=== PATIENT | male | born 1965 | race Caucasian/White ===

== ENCOUNTER 2021-07-04 12:00 | Inpatient (IN) | payer MEDICARE ==
[~2021-07-04] VITALS: Ht 172.7 cm; Wt 165.0 kg
[2021-07-04 12:27] LABS: BASO % 0.3 % (0.0-2.0); EOS # 0.2 K/mm3 (0.0-0.7); EOS % 1.1 % (0.0-4.0); GRAN # 10.4 K/mm3 (1.4-6.5); GRAN % 77.3 % (42.2-75.2); HEMATOCRIT 45.8 % (42.0-52.0); HEMOGLOBIN 14.7 g/dl (13.5-18.0); LYMPH # 1.8 K/mm3 (1.2-3.4); LYMPH % 13.5 % (20.0-51.0); MEAN CELL VOLUME 84 fl (80.0-100.0); MEAN CORPUSCULAR HEMOGLOBIN 27 pg (27-31); MEAN CORPUSCULAR HGB CONC 32 g/dl (33.0-37.0); MEAN PLATELET VOLUME 8.9 fl (7.4-10.4); MONO % 7.3 % (1.7-9.3); PLATELET COUNT 260 K/mm3 (130-400); RED BLOOD COUNT 5.48 M/mm3 (4.20-5.60); REDCELL DISTRIBUTION WIDTH-CV 14.6 % (11.5-14.5)
[2021-07-04 12:39] LABS: ACETONE,SERUM NEGATIVE
[2021-07-04 12:43] LABS: ALANINE AMINOTRANSFERASE 14 U/L (0-55); ALBUMIN 3.1 gm/dL (3.5-5.0); ALKALINE PHOSPHATASE 86 U/L (40-150); ANION GAP 12 mmol/L (7-16); AST,SGOT 12 U/L (5-34); BILIRUBIN,TOTAL 0.4 mg/dL (0.2-1.2); BLOOD UREA NITROGEN 32 mg/dL (8-26); CALCIUM 8.8 mg/dL (8.4-10.2); CARBON DIOXIDE 23 mmol/L (22-29); CHLORIDE 102 mmol/L (98-107); CREATININE, serum 1.43 mg/dL (0.72-1.25); GLUCOSE 224 mg/dL (70-99); POTASSIUM 4.3 mmol/L (3.5-4.5); SODIUM 137 mmol/L (136-145); TOTAL PROTEIN 7.1 gm/dL (6.2-8.1)
[2021-07-04 13:08] LABS: COLLECTION METHOD CLEAN CATCH
[2021-07-04 13:21] LABS: MUCOUS Present (NOT PRESENT); PH 5 (5-8); SQUAMOUS EPITHELIAL 0-2 /hpf (0-10); URINE APPEARANCE Hazy (CLEAR/HAZY); URINE BACTERIA Occasional /hpf (NONE SEEN); URINE BILIRUBIN Negative (NEGATIVE); URINE BLOOD Negative (NEGATIVE); URINE COLOR Yellow (YELLOW); URINE GLUCOSE Negative (NEGATIVE); URINE KETONE Negative (NEGATIVE); URINE LEUKOCYTE ESTERASE 1+ (NEGATIVE); URINE NITRATE Negative (NEGATIVE); URINE PROTEIN(semi-quant) Negative (NEGATIVE); URINE RBC 0-2 /hpf (0-2)
[2021-07-04] MEDS ORDERED: PRINIVIL40 MG PO (15:48)
[2021-07-04] MEDS ORDERED: PRINIVIL20 MG PO (15:48)
[2021-07-04] MEDS ORDERED: MOTRIN 800800 MG/TAB PO (15:49)
[2021-07-04] MEDS ORDERED: ASPIRIN 81M81 MG/TA2 PO (15:49)
[2021-07-04] MEDS ORDERED: TYLENOL 500MG500 MG PO (15:50)
[2021-07-04] MEDS ORDERED: Tumeric (15:52)
[2021-07-04] MEDS ORDERED: OMEGA-3 1000 MG1 CAP PO (15:54)
[2021-07-04 16:09] LABS: TSH w REFLEX 1.093 uIU/mL (0.350-4.940)
[2021-07-04 16:17] VITALS: BP 116/75; PULSE 92; TEMP 97.9
[2021-07-04 16:20] LABS: TROPONIN-I < 0.010 ng/mL (0.00-0.033)
--- NOTE | 2021-07-04 17:29 | NUR ---
Vancomycin Initial Dosing Pharmacy Note Ordering provider: Noe Edgar MD Indication/duration: CELLULITIS Relevant comorbidities: DM LABS: WBC 13.4, SCR 1.4, CRCL.~80 Recommendation: VANCOMYCIN ~10MG/KG Loading dose: 2 grams Maintenance dose: 1.75 grams every 12 hours Trough goal: 10-15 ug/mL. TROUGH 07/06 @ 1400
--- NOTE | 2021-07-04 18:29 | NUR ---
PT LAYING ON LEFT SIE IN BED. PT STATES THAT HE NEEDS TO USE THE BATHROOM BUT DOESNT FEEL LIKE GETTING UP RIGHT NOW. PT WAS GIVEN A URINAL. PT STATES NO OTHER NEEDS OR PAIN AT THIS TIME. CALL LIGHT IS WITHIN REACH.
[2021-07-04 20:18] VITALS: BP 114/77; PULSE 104; TEMP 98.5
--- NOTE | 2021-07-04 21:42 | NUR ---
No home settings provided. No CPAP or Bipap settings in order. Confirmed with Rissa Rich can use O2 Nasal Cannula and will monitor O2 SpO2 and if not tolerated will contact provider for further orders.
[2021-07-04 22:59] LABS: PARTIAL THROMBOPLASTIN TIME 54.1 SECONDS (26.0-37.0)
[2021-07-05 00:37] VITALS: BP 132/56; PULSE 89; TEMP 98.5
[2021-07-05 04:39] VITALS: BP 117/52; PULSE 75; TEMP 98.7
--- NOTE | 2021-07-05 06:15 | NUR ---
ASSESSMENT COMPLETE FOR THIS SHIFT. PT SITTING ON THE SIDE OF HIS BED WATCHING TV. PT DENIED PAIN, PALPITATIONS, SOB, N,V,D, OR DIZZINESS. PT SHOWED SOME V-TACH AND AFIB ON TELLE. HOSPITALIST CALLED. EKG, HEPRIN BOLUS AND DRIP ORDERED. PT CONTINUED, THROUGHOUT THE SHIFT, TAKING OFF HIS TELLE. PT REMINDED OVER AND OVER OF THE IMPORTANCE OF KEEPING ON HIS TELLE LEADS. AT 0600HRS HOSPITALIST CALLED ABOUT PT'S NON-COMPLIANCE ON TELLE. HOSPITALIST SAID TO JUST LEAVE IT OFF FOR NOW AND HAVING DAYSHIFT WORK WITH PT, TO TRY TO GET PT TO BE MORE COMPLIANT. OTHER THEN 3 SANDWICH BOXES, A PUDDING AND A SPRITE ZERO, PT EXPRESSED NO OTHER NEEDS AT THIS TIME. CALL LIGHT WITHIN REACH.
[2021-07-05 06:23] LABS: BASO % 0.3 % (0.0-2.0); EOS # 0.2 K/mm3 (0.0-0.7); EOS % 1.5 % (0.0-4.0); GRAN # 9.4 K/mm3 (1.4-6.5); GRAN % 68.7 % (42.2-75.2); HEMATOCRIT 43.9 % (42.0-52.0); LYMPH # 2.6 K/mm3 (1.2-3.4); LYMPH % 18.9 % (20.0-51.0); MEAN CELL VOLUME 85 fl (80.0-100.0); MEAN CORPUSCULAR HEMOGLOBIN 27 pg (27-31); MEAN CORPUSCULAR HGB CONC 32 g/dl (33.0-37.0); MEAN PLATELET VOLUME 9.8 fl (7.4-10.4); MONO # 1.4 K/mm3 (0.1-0.6); MONO % 9.9 % (1.7-9.3); PLATELET COUNT 219 K/mm3 (130-400); RED BLOOD COUNT 5.18 M/mm3 (4.20-5.60); REDCELL DISTRIBUTION WIDTH-CV 14.8 % (11.5-14.5)
[2021-07-05 06:45] LABS: ALBUMIN 2.9 gm/dL (3.5-5.0); CHOLESTEROL RISK RATIO 4.4; CREATININE, serum 1.38 mg/dL (0.72-1.25); MAGNESIUM 1.6 mg/dL (1.6-2.6); PHOSPHOROUS 2.9 mg/dL (2.3-4.7); POTASSIUM 4.4 mmol/L (3.5-4.5)
--- NOTE | 2021-07-05 07:00 | NUR ---
THE PATIENT IS SLEEPING AT THIS TIME. ASSESSMENT AND MEDICATIONS TO BE DONE ON NEXT HOUR ROUNDING.
--- NOTE | 2021-07-05 08:08 | NUR ---
PT IS REFUSING TO WEAR THE RETAIL SALES DIRECTOR.
[2021-07-05 08:25] VITALS: BP 98/34; BP 98/49; PULSE 92; TEMP 98.8
[2021-07-05] MEDS ORDERED: PRADAXA 150MG150 MG PO (09:03)
[2021-07-05] MEDS ORDERED: TOPROL XL 25MG25 MG PO (09:04)
[2021-07-05] MEDS ORDERED: LIPITOR 40MG TA40 MG PO (09:05)
[2021-07-05] MEDS ORDERED: ULTRAM 50MG TAB50 MG PO (09:06)
[2021-07-05] MEDS ORDERED: HUMULIN 70/3100 U/M1 SQ (09:09)
[2021-07-05] MEDS ORDERED: GLUCOPHAGE XR500 M1 PO (09:10)
[2021-07-05] MEDS ORDERED: PRINIVIL40 MG PO (09:13)
[2021-07-05 12:00] VITALS: BP 112/54; PULSE 90; TEMP 98.6
--- NOTE | 2021-07-05 12:15 | NUR ---
AYO met with the patient and his four daughters: Elvia (ph#[phone]), Vida (ph#[phone]), Malu, and Carmen to discuss discharge plan. The patient lives in [place] with his two daughters: Vida and Carmen. The patient states that he moved here three weeks ago from [place]. He reports needing assistance with ADLs and has a walker and wheelchair. His daughters help him with bathing and using the restroom. The patient does not have a PCP here. The patient states that the insurance he has on file, is from his job he just retired from. Elvia states that the insurance is still active at this time, but for not much longer. Kaela states that the insurance only covers for emergencies and hospital visits, not follow up care. They are interested in applying for state insurance. AYO consulted Financial Couselor, Yony, for a Medicaid application. AYO informed the patient and his daughters that with the patient's insurance not covering for follow up care, he would essentially be self pay. AYO informed the patient and his daughters of the local health clinics ([facility] and [facility]). The patient does not have a DPOA-HC, but he was interested in completing a form while here. AYO provided. The patient designated his daughter, Elvia Looney, and his other daughter, Vida Looney, as the alternate. AYO and lang interpreter, Alexadnrea, witnessed the patient's signature. AYO provided the patient with the original and some copies. AYO placed a copy in the patient's chart. The patient plans to return home with his daughters upon discharge. SW to continue to follow. *Discharge plan: home with daughters*
[2021-07-05 16:06] VITALS: BP 126/62; PULSE 95; TEMP 98.7
--- NOTE | 2021-07-05 16:43 | NUR ---
PT RECOMMENDED TO WEAR TELEMETRY; PT REFUSING TO WEAR IT.
[2021-07-05 17:17] LABS: ARTERIAL BLD GAS O2 SATURATION 96.8 % (92-100); ARTERIAL BLD GAS TCO2 CT 20.4; ARTERIAL BLOOD GAS BASE EXCESS -4.4 (-2-2); ARTERIAL BLOOD GAS HCO3 19.4 meq/L (22-26); ARTERIAL BLOOD GAS PCO2 32.3 mmHg (35-45); ARTERIAL BLOOD GAS PO2 83.9 mmHg (80-100)
[2021-07-05 20:50] VITALS: BP 133/78; PULSE 104; TEMP 97.7
--- NOTE | 2021-07-05 21:42 | NUR ---
PATIENT AWAKE AND ALERT IN BED. INTERMITTENTLY CONFUSED, REPEATEDLY ASKING THE SAME QUESTIONS BUT ABLE TO ANSWER ORIENTATION QUESTIONS APPROPRIATELY. NOT IN ANY ACUTE DISTRESS, JUST STATES THAT HE WOULD LIKE TO BE LEFT ALONE TO SLEEP. ALL SAFETY MEASURES MAINTAINED. RN WILL CONTINUE TO MONITOR.
[2021-07-06 00:08] VITALS: BP 115/73; PULSE 115; TEMP 97.6
[2021-07-06 04:29] VITALS: BP 125/74; PULSE 102; TEMP 97.3
[2021-07-06 06:43] LABS: BASO # 0.1 K/mm3 (0.0-0.2); BASO % 0.3 % (0.0-2.0); EOS # 0.3 K/mm3 (0.0-0.7); EOS % 1.9 % (0.0-4.0); GRAN # 10.6 K/mm3 (1.4-6.5); HEMOGLOBIN 14.6 g/dl (13.5-18.0); LYMPH # 2.3 K/mm3 (1.2-3.4); LYMPH % 16.1 % (20.0-51.0); MEAN CELL VOLUME 85 fl (80.0-100.0); MEAN CORPUSCULAR HEMOGLOBIN 27 pg (27-31); MEAN CORPUSCULAR HGB CONC 31 g/dl (33.0-37.0); MEAN PLATELET VOLUME 9.6 fl (7.4-10.4); MONO # 1.2 K/mm3 (0.1-0.6); MONO % 8.1 % (1.7-9.3); PLATELET COUNT 260 K/mm3 (130-400); RED BLOOD COUNT 5.51 M/mm3 (4.20-5.60); REDCELL DISTRIBUTION WIDTH-CV 14.6 % (11.5-14.5)
[2021-07-06 06:59] LABS: ALBUMIN 3.1 gm/dL (3.5-5.0); CALCIUM 8.5 mg/dL (8.4-10.2); CREATININE, serum 1.2 mg/dL (0.72-1.25); MAGNESIUM 1.9 mg/dL (1.6-2.6); PHOSPHOROUS 2.8 mg/dL (2.3-4.7); POTASSIUM 4.3 mmol/L (3.5-4.5)
[2021-07-06 07:21] VITALS: BP 130/82; PULSE 93; TEMP 97.8
--- NOTE | 2021-07-06 09:21 | NUR ---
Initial visit attempt; Family just going into patient's room which was dark. Labor And Employment Paralegal gave them a card to give to Jose when he awakens. The card offers Spiritual Care and God's blessings along with Labor And Employment Paralegal's number and presence at [place].
[2021-07-06 12:02] VITALS: BP 105/67; PULSE 84; TEMP 97.8
--- NOTE | 2021-07-06 15:14 | NUR ---
Vancomycin Follow-up Pharmacy Note Current regimen: Vancomycin 1.75 gm IV q12h Vancomycin trough: 26.82 Adjustments: Hold Vancomycin to allow level to clear. Restart with Vancomycin 1 gm IV q12h tomorrow. Pharmacy will continue to closely monitor.
[2021-07-06 16:24] VITALS: BP 133/89; PULSE 62; TEMP 98
--- NOTE | 2021-07-06 18:59 | NUR ---
PT HAD EVENTFUL DAY. HE IS NON-COMPLIANT WITH ALL OF HIS CARES. HE REFUSES TELEMETRY, WE REPLACE THAT PER CARDIOLOGY RECS. ATTEMPTS WERE MADE SEVERAL TIMES TO START IV, THOSE WERE UNSUCCESSFUL. THE PATIENT IS JUST LAYING IN BED. ALL MEDICATIONS HAVE BEEN TRANSFERRED OVER TO ORAL MEDICATIONS. NO OTHER CONCERNS AT THIS TIME, REPORT GIVEN TO TERESITA BLACK.
[2021-07-06 20:30] VITALS: BP 113/66; PULSE 97; TEMP 98.1
--- NOTE | 2021-07-06 23:02 | NUR ---
PATIENT CONTINUE TO REMOVED TELE MONITOR, TRYING TO EDUCATE AND REDIRECT PATIENT ON REASONING FOR TELE MONITOR PER STEAM METER READER. PATIENT ALSO CONTINUES TO REMOVED IV. ASKED PATIENT IF HE WOULD LIKE A BATH THIS EVENING. DAUGHTER SAID SHE HAS BEEN REQUESTING. PATIENT STATED IT WAS "NOT IMPORTANT RIGHT NOW" "AND MY DAUGHTER IS BEING A PAIN IN THE ASS". CORPORATE TRAINING MANAGER OFFERED PATIENT TO SHOWER AND REFUSED. PROVIDED MELATONIN PATIENT STATED HE JUST WANTS TO GET SOME SLEEP AND WANTS TO GO HOME. PATIENT AMBULATORY WITH WALKER FOR B/B ELIMINATION. CALL LIGHT WITHIN REACH. TRIED TO START NEW IV PATIENT UPSET STATED HE DOESN'T SEE THE POINT. WILL KEEP TRYING TO ENCOURAGE AND EDUCATE PATIENT ON IMPORTANCE OF TREATMENT AND CARE.
[2021-07-07 00:41] VITALS: BP 95/57; PULSE 89; TEMP 98.1
--- NOTE | 2021-07-07 03:06 | NUR ---
PATIENT CONTINUES TO BE NON-COMPLIANT WITH HEART MONITOR REMOVING DEVICE. WILL CONTINUE TO ASSIST WITH REAPLYING MONITOR UNABLE TO GET IV ACCESS AT THIS TIME. PATIENT WAS TRANSITIONED TO PO MEDICATION ON DAY SHIFT DUE TO PATIENT REMOVING IV. WILL CONTINUE TO MONITOR FOR ANY CHANGES CALL LIGHT WITHIN REACH. PATIENT SLEEPING AT THIS TIME.
[2021-07-07 04:34] VITALS: BP 113/64; PULSE 54; TEMP 98.2
[2021-07-07 06:22] LABS: BASO % 0.3 % (0.0-2.0); EOS # 0.2 K/mm3 (0.0-0.7); EOS % 1.5 % (0.0-4.0); GRAN # 10.7 K/mm3 (1.4-6.5); GRAN % 72.2 % (42.2-75.2); HEMATOCRIT 43.7 % (42.0-52.0); HEMOGLOBIN 14.2 g/dl (13.5-18.0); LYMPH # 2.5 K/mm3 (1.2-3.4); LYMPH % 16.7 % (20.0-51.0); MEAN CELL VOLUME 83 fl (80.0-100.0); MEAN CORPUSCULAR HEMOGLOBIN 27 pg (27-31); MEAN CORPUSCULAR HGB CONC 33 g/dl (33.0-37.0); MEAN PLATELET VOLUME 9.5 fl (7.4-10.4); MONO # 1.3 K/mm3 (0.1-0.6); MONO % 8.6 % (1.7-9.3); PLATELET COUNT 244 K/mm3 (130-400); RED BLOOD COUNT 5.25 M/mm3 (4.20-5.60); REDCELL DISTRIBUTION WIDTH-CV 14.6 % (11.5-14.5)
[2021-07-07 06:44] LABS: CALCIUM 8.5 mg/dL (8.4-10.2); CREATININE, serum 1.17 mg/dL (0.72-1.25); MAGNESIUM 1.7 mg/dL (1.6-2.6); PHOSPHOROUS 2.7 mg/dL (2.3-4.7); POTASSIUM 4.6 mmol/L (3.5-4.5)
[2021-07-07 07:48] VITALS: BP 109/69; PULSE 87; TEMP 98.1
[2021-07-07] MEDS ORDERED: AMOXICILLIN 8751 TAB PO (11:05)
[2021-07-07] MEDS ORDERED: LASIX 20MG TABL20 MG PO (11:05)
[2021-07-07] MEDS ORDERED: DESENEX TP (11:05)
[2021-07-07] MEDS ORDERED: MONODOX100 PO (11:05)
[2021-07-07 12:13] VITALS: BP 100/62; PULSE 102; TEMP 98.1
--- NOTE | 2021-07-07 14:52 | NUR ---
The clinical team is ready to discharge the patient today. AYO met with the patient and his daughters to follow up about primary care. The patient's daughters would like to get him set up at [facility] in [place]. AYO contacted [facility] in and secured the patient an appointment there on 07/14 at 0820. AYO notified the community coordinator of the appointment. AYO faxed the patient's orders to [facility]. The patient's daughters inquired about the patient's meds and how much they will be, due to him being self pay. AYO contacted the patient's preferred pharmacy, [facility] in , and priced the patient's meds. The outpatient receptionist states that she added a discount card and the total for all his meds is $28.22. AYO updated the patient's daughters. They report that they can afford that. The patient is to discharge back home with his daughters today, 07/07. No additional needs at this time.
--- NOTE | 2021-07-07 14:55 | NUR ---
PT GIVEN DISCHARGE EDUCATION; DAUGHTERS AT BEDSIDE VERBALIZED UNDERSTANDING. PT WALKED OUT AT THIS TIME.
== END 2021-07-07 14:55 | disposition home or self-care (01) | DRG 872 ==
LOC: COL.ER 12:00 → MEDICAL 14:34
PROVIDERS: Emergency Medicine; Physician Assistant; ADMIT Internal Medicine
PROC: 5A2204Z Restoration of Cardiac Rhythm, Single (ICD-10-PCS; principal; 2021-07-06)
PROC: B24BZZ4 Ultrasonography of Heart with Aorta, Transesophageal (ICD-10-PCS; 2021-07-06)
DX: A41.51 Sepsis due to Escherichia coli [E. coli] (principal); I13.0 Hypertensive heart and chronic kidney disease with heart failure and stage 1 through stage 4 chronic kidney disease, or unspecified chronic kidney disease; N39.0 Urinary tract infection, site not specified; L03.314 Cellulitis of groin; N17.9 Acute kidney failure, unspecified; I48.19 Other persistent atrial fibrillation; I50.32 Chronic diastolic (congestive) heart failure; Z68.43 Body mass index [BMI] 50.0-59.9, adult; Z66 Do not resuscitate; N18.9 Chronic kidney disease, unspecified; E11.22 Type 2 diabetes mellitus with diabetic chronic kidney disease; E78.5 Hyperlipidemia, unspecified; G47.33 Obstructive sleep apnea (adult) (pediatric); E66.01 Morbid (severe) obesity due to excess calories; I34.0 Nonrheumatic mitral (valve) insufficiency; Z91.14 Patient's other noncompliance with medication regimen; Z79.82 Long term (current) use of aspirin; Z79.4 Long term (current) use of insulin
CPT/HCPCS: 99223-AI; 99232-AI; 99233-AI; 99239; J0282; J1644; J1815; J2543; J2704; J3370; J3475; J7030; J7040

== ENCOUNTER 2021-10-19 03:41 | Observation (INO) | payer OTHER ==
[~2021-10-19] VITALS: Ht 172.7 cm; Wt 161.3 kg
[~2021-10-19 03:41] MED LIST: AMOXICILLIN 8751 TAB PO; ASPIRIN 81M81 MG/TA2 PO; DESENEX TP; GLUCOPHAGE XR500 M1 PO; HUMULIN 70/3100 U/M1 SQ; LASIX 20MG TABL20 MG PO; LIPITOR 40MG TA40 MG PO; MONODOX100 PO; MOTRIN 800800 MG/TAB PO; OMEGA-3 1000 MG1 CAP PO; PRADAXA 150MG150 MG PO; PRINIVIL20 MG PO; PRINIVIL40 MG PO; TOPROL XL 25MG25 MG PO; TYLENOL 500MG500 MG PO; Tumeric; ULTRAM 50MG TAB50 MG PO
[2021-10-19 04:43] LABS: COLLECTION METHOD IN
[2021-10-19 04:57] LABS: MUCOUS Present (NOT PRESENT); URINE BACTERIA Many /hpf (NONE SEEN); URINE RBC >50 /hpf (0-2)
[2021-10-19 05:00] LABS: URINE APPEARANCE Cloudy (CLEAR/HAZY); URINE COLOR Yellow (YELLOW); URINE GLUCOSE Negative (NEGATIVE); URINE PROTEIN(semi-quant) Negative (NEGATIVE)
[2021-10-19 05:01] LABS: URINE BLOOD 3+ (NEGATIVE); URINE KETONE Negative (NEGATIVE); URINE NITRATE Positive (NEGATIVE)
[2021-10-19 05:21] LABS: BASO % 0.2 % (0.0-2.0); EOS # 0.2 K/mm3 (0.0-0.7); EOS % 1.1 % (0.0-4.0); GRAN # 12.7 K/mm3 (1.4-6.5); HEMOGLOBIN 17.5 g/dl (13.5-18.0); LYMPH # 2.5 K/mm3 (1.2-3.4); MEAN CELL VOLUME 84 fl (80.0-100.0); MEAN CORPUSCULAR HEMOGLOBIN 27 pg (27-31); MEAN CORPUSCULAR HGB CONC 32 g/dl (33.0-37.0); MEAN PLATELET VOLUME 9.3 fl (7.4-10.4); MONO # 1.2 K/mm3 (0.1-0.6); MONO % 6.9 % (1.7-9.3); PLATELET COUNT 284 K/mm3 (130-400); RED BLOOD COUNT 6.44 M/mm3 (4.20-5.60); REDCELL DISTRIBUTION WIDTH-CV 15.2 % (11.5-14.5)
[2021-10-19 05:28] LABS: HEMATOCRIT 54.1 % (42.0-52.0)
[2021-10-19 05:43] LABS: ALBUMIN 3.4 gm/dL (3.5-5.0); BILIRUBIN,TOTAL 0.8 mg/dL (0.2-1.2); C-REACTIVE PROTEIN 3.07 mg/dL (0.00-0.50); CALCIUM 9.6 mg/dL (8.4-10.2); CREATININE, serum 1.38 mg/dL (0.72-1.25); POTASSIUM 4.2 mmol/L (3.5-4.5); TOTAL PROTEIN 8.3 gm/dL (6.2-8.1)
[2021-10-19 08:23] VITALS: BP 94/36; PULSE 95; TEMP 97.5
--- NOTE | 2021-10-19 10:05 | NUR ---
Initial visit; Patient thanked Generating Plant Superintendent for looking in on him, visiting and offering encouragement and Spiritual Care. Generating Plant Superintendent wished Jose well and will follow-up while he is a patient here.
--- NOTE | 2021-10-19 10:55 | NUR ---
Steel Layout Worker met with patient to discuss discharge planning. Patient lives in [place] with his daughters, Vida and Carmen. Patient does not have established primary care but would like SW assistance with setting this up. Patient stated he has no preferences on where he is set up. Patient states he does not normally take any medications but thinks [facility] would be his preferred pharmacy. Patient has a walker at home and reports he is "for the most part" independent with ADLS. Patient has DPOA-HC in EMR which designates his daughters, Elvia (ph#[phone]) and Vida (ph#[phone]). Patient plans to return home at time of discharge. AYO contacted Harmony at [facility] [place] and she will talk with her team to determine if one of their physicians can accept. Discharge Plan: Home
[2021-10-19 12:17] VITALS: BP 114/75; PULSE 102; TEMP 99.2
--- NOTE | 2021-10-19 13:38 | NUR ---
Credit Collections Specialist followed up with patient's daughter, Malu (ph#[phone]) to discuss discharge planning. Malu and patient advised they would be interested in Home Health if patient's insurance would cover it. Patient stated he would prefer Home Health vs possible placement. Patient has declined PT twice today. SW provided Medicare.gov list of HH agencies and patient selected [facility] . Malu advised they would be fine with whatever agency if [facility] did not have availability. Patient is also interested in applying for Medicaid. AYO consulted Yony Financial Counselor. Malu advised she would be the best point of contact for these things as her sisters don't really like to discuss things like that. RN advised AYO privately that Malu reported patient's other daughters are tired of caring for him at home and that he has been incontinent.
--- NOTE | 2021-10-19 14:57 | NUR ---
[facility] does not have PT/OT in [place]. SW faxed referral to [facility].
[2021-10-19 17:17] VITALS: BP 116/73; PULSE 110; TEMP 99.2
[2021-10-19 19:34] VITALS: BP 110/54; PULSE 113; TEMP 97.5
--- NOTE | 2021-10-19 23:57 | NUR ---
Shift assessment preformed. Scheduled medications given. VSS. Patient A&O. Laura catheter in place. Securment device in place, no kinks in tubing. Patient denies any pain, discomfort, SOA, or further needs at this time. Call light in reach. Fall precautions in place. Patient refused desenex, but requested that it be offered at a later time.
[2021-10-20 00:02] VITALS: BP 122/71; PULSE 104; TEMP 97.7
[2021-10-20 04:23] VITALS: BP 105/52; PULSE 86; TEMP 97.8
--- NOTE | 2021-10-20 05:45 | NUR ---
Patient has had an uneventful nights. Vital signs have remained stable. Laura catheter in place, securement device in use, no kinks in tubing. Tala care preformed on patient. Patient denies any pain, discomfort, SOA, or further needs at this time. call light in reach. Fall precautions in place.
[2021-10-20 06:30] LABS: BASO % 0.2 % (0.0-2.0); EOS # 0.2 K/mm3 (0.0-0.7); EOS % 1.1 % (0.0-4.0); GRAN # 10.1 K/mm3 (1.4-6.5); GRAN % 72.1 % (42.2-75.2); HEMATOCRIT 46.4 % (42.0-52.0); LYMPH # 2.5 K/mm3 (1.2-3.4); LYMPH % 17.4 % (20.0-51.0); MEAN CELL VOLUME 85 fl (80.0-100.0); MEAN CORPUSCULAR HEMOGLOBIN 27 pg (27-31); MEAN CORPUSCULAR HGB CONC 32 g/dl (33.0-37.0); MEAN PLATELET VOLUME 9.7 fl (7.4-10.4); MONO # 1.2 K/mm3 (0.1-0.6); MONO % 8.6 % (1.7-9.3); PLATELET COUNT 240 K/mm3 (130-400); RED BLOOD COUNT 5.45 M/mm3 (4.20-5.60); REDCELL DISTRIBUTION WIDTH-CV 14.6 % (11.5-14.5)
[2021-10-20 06:38] LABS: HEMOGLOBIN 14.8 g/dl (13.5-18.0)
[2021-10-20 06:56] LABS: ALBUMIN 2.9 gm/dL (3.5-5.0); CALCIUM 8.9 mg/dL (8.4-10.2); CREATININE, serum 1.16 mg/dL (0.72-1.25); MAGNESIUM 1.8 mg/dL (1.6-2.6); PHOSPHOROUS 3.3 mg/dL (2.3-4.7)
[2021-10-20 07:16] VITALS: BP 107/79; PULSE 95; TEMP 97.4
--- NOTE | 2021-10-20 10:28 | NUR ---
Welcome Wagon Hostess contacted Bharati at [facility]. She advised they are still reviewing referral and are concerned about patient's payer source. PT/OT worked with patient and recommend return home. AYO sent a follow up email to Yony, Financial Counselor about Medicaid.
[2021-10-20 11:10] VITALS: BP 107/60; PULSE 80; TEMP 98.1
[2021-10-20 16:00] VITALS: BP 112/65; PULSE 86; TEMP 98
[2021-10-20 21:29] VITALS: BP 105/67; PULSE 86; TEMP 98.3
[2021-10-21 00:03] VITALS: BP 118/71; PULSE 91; TEMP 97.9
[2021-10-21 04:09] VITALS: BP 97/43; PULSE 95; TEMP 97.8
--- NOTE | 2021-10-21 06:04 | NUR ---
SHIFT SUMMARY: PATIENT RESTED QUIETLY THIS SHIFT. PATIENT RECEIVED PRN ULTRAM FOR PAIN WHICH PATIENT REPORTED EFFECTIVE. PATIENT DENIED CONCERNS.
[2021-10-21 07:13] VITALS: BP 87/44; PULSE 93; TEMP 97.7
[2021-10-21 07:14] LABS: BASO % 0.2 % (0.0-2.0); EOS # 0.3 K/mm3 (0.0-0.7); EOS % 2.1 % (0.0-4.0); GRAN # 8.7 K/mm3 (1.4-6.5); GRAN % 72.1 % (42.2-75.2); HEMATOCRIT 45.6 % (42.0-52.0); HEMOGLOBIN 14.8 g/dl (13.5-18.0); LYMPH % 16.2 % (20.0-51.0); MEAN CELL VOLUME 86 fl (80.0-100.0); MEAN CORPUSCULAR HEMOGLOBIN 28 pg (27-31); MEAN CORPUSCULAR HGB CONC 33 g/dl (33.0-37.0); MEAN PLATELET VOLUME 9.9 fl (7.4-10.4); MONO # 1.1 K/mm3 (0.1-0.6); MONO % 8.8 % (1.7-9.3); PLATELET COUNT 219 K/mm3 (130-400); REDCELL DISTRIBUTION WIDTH-CV 14.7 % (11.5-14.5)
[2021-10-21 07:29] VITALS: BP 110/65; PULSE 92
[2021-10-21 07:37] LABS: ALBUMIN 2.7 gm/dL (3.5-5.0); CALCIUM 8.5 mg/dL (8.4-10.2); CREATININE, serum 0.9 mg/dL (0.72-1.25); MAGNESIUM 1.8 mg/dL (1.6-2.6); PHOSPHOROUS 3.7 mg/dL (2.3-4.7); POTASSIUM 3.9 mmol/L (3.5-4.5)
--- NOTE | 2021-10-21 08:00 | NUR ---
Patient laying in bed sleeping, easily awakened with verbal command. A&Ox3. VSS. IV CDI. Denies pain and discomfort. Reports just being tired. Call light within reach.
[2021-10-21 11:32] VITALS: BP 124/61; PULSE 89; TEMP 97.8
[2021-10-21] MEDS ORDERED: LIPITOR 40MG TA40 MG PO (14:23)
[2021-10-21] MEDS ORDERED: OMNICEF 300MG300 MG PO (14:23)
[2021-10-21] MEDS ORDERED: ZOFRAN ODT4 MG PO (14:24)
[2021-10-21] MEDS ORDERED: LASIX 20MG TABL20 MG PO (14:24)
[2021-10-21] MEDS ORDERED: TOPROL XL 25MG25 MG PO (14:24)
[2021-10-21] MEDS ORDERED: GLUCOPHAGE1000 MG PO ×2 (15:28→15:44)
[2021-10-21] MEDS ORDERED: BYDUREON B2 MG/0.85 (15:30)
[2021-10-21 15:50] VITALS: BP 145/95; PULSE 92; TEMP 97.5
--- NOTE | 2021-10-21 17:09 | NUR ---
Discharge paperwork reviewed with the patient and daughters at the bedside. Patient verbalized an understanding to follow doctors orders. IV removed, tip intact. Patient transfered to awaiting vehicle in a wheelchair. No further needs expressed.
--- NOTE | 2021-10-21 17:13 | NUR ---
Hanging Flags Decorator attended clinical rounds with the team and patient to discharge home today. AYO made follow up appointment at [facility] for 11/02/21 at 1300. AYO followed up with patient and two daughters who are working on a Medicaid application with Yony. AYO informed the patient that his insurance on file is not valid. Patient's daughters advised that he recently got [employer] and will provide the policy number via email so SW can provide it to [facility]. AYO advised patient and daughters that discharge will be home today and stressed the importance of completing the Medicaid application. AYO also reminded them of follow up at [facility]. AYO was contacted by daughter, Elvia who advised she works in [employer] and can't be there today, but that based on report from her sisters, patient is not well enough to return home and they cannot care for him. AYO advised that PT/OT worked with patient and recommend home. AYO advised discharge will be home today and Elvia requests to speak with RN. AYO notified RN and Meat Blender. AYO made report to APS (intake #[id number]).
== END 2021-10-21 17:09 | disposition home or self-care (01) ==
LOC: COL.ER 03:41 → MEDICAL 06:45
PROVIDERS: Emergency Medicine; ADMIT Internal Medicine
DX: N39.0 Urinary tract infection, site not specified (principal); R00.0 Tachycardia, unspecified; D72.829 Elevated white blood cell count, unspecified; A41.9 Sepsis, unspecified organism; E11.22 Type 2 diabetes mellitus with diabetic chronic kidney disease; I12.9 Hypertensive chronic kidney disease with stage 1 through stage 4 chronic kidney disease, or unspecified chronic kidney disease; N17.9 Acute kidney failure, unspecified; N18.2 Chronic kidney disease, stage 2 (mild); E78.5 Hyperlipidemia, unspecified; E66.01 Morbid (severe) obesity due to excess calories; I48.20 Chronic atrial fibrillation, unspecified; F17.220 Nicotine dependence, chewing tobacco, uncomplicated; R53.1 Weakness; N28.89 Other specified disorders of kidney and ureter; Z66 Do not resuscitate; Z79.01 Long term (current) use of anticoagulants; Z79.899 Other long term (current) drug therapy; Z79.84 Long term (current) use of oral hypoglycemic drugs; Z79.82 Long term (current) use of aspirin; Z91.14 Patient's other noncompliance with medication regimen; Z79.4 Long term (current) use of insulin; Z68.43 Body mass index [BMI] 50.0-59.9, adult
CPT/HCPCS: G0378; J0696; J1644; J1815; J7030

== ENCOUNTER 2021-10-30 13:09 | Emergency (ER) | payer OTHER ==
[~2021-10-30] VITALS: Ht 20.3 cm; Wt 159.1 kg
[~2021-10-30 13:09] MED LIST changes: +BYDUREON B2 MG/0.85; +GLUCOPHAGE1000 MG PO; +OMNICEF 300MG300 MG PO; +ZOFRAN ODT4 MG PO
[2021-10-30 13:11] VITALS: TEMP 98.6
[2021-10-30 13:48] LABS: COLLECTION METHOD IN
[2021-10-30 14:01] LABS: MUCOUS Present (NOT PRESENT); SQUAMOUS EPITHELIAL 0-2 /hpf (0-10); URINE BACTERIA Rare /hpf (NONE SEEN); URINE WBC 0-2 /hpf (0-2)
[2021-10-30 14:14] LABS: BASO # 0.1 K/mm3 (0.0-0.2); BASO % 0.4 % (0.0-2.0); EOS # 0.2 K/mm3 (0.0-0.7); EOS % 1.3 % (0.0-4.0); GRAN # 11.1 K/mm3 (1.4-6.5); GRAN % 78.4 % (42.2-75.2); HEMATOCRIT 51.8 % (42.0-52.0); LYMPH # 1.9 K/mm3 (1.2-3.4); LYMPH % 13.1 % (20.0-51.0); MEAN CELL VOLUME 83 fl (80.0-100.0); MEAN CORPUSCULAR HEMOGLOBIN 27 pg (27-31); MEAN CORPUSCULAR HGB CONC 33 g/dl (33.0-37.0); MEAN PLATELET VOLUME 9.3 fl (7.4-10.4); MONO # 0.9 K/mm3 (0.1-0.6); MONO % 6.2 % (1.7-9.3); PLATELET COUNT 251 K/mm3 (130-400); RED BLOOD COUNT 6.28 M/mm3 (4.20-5.60); REDCELL DISTRIBUTION WIDTH-CV 14.5 % (11.5-14.5)
[2021-10-30 14:15] LABS: URINE APPEARANCE Hazy (CLEAR/HAZY); URINE COLOR Yellow (YELLOW); URINE GLUCOSE Negative (NEGATIVE); URINE KETONE Negative (NEGATIVE); URINE PROTEIN(semi-quant) Negative (NEGATIVE); URINE UROBILINOGEN 0.2 E.U/dL (0.2-1.0)
[2021-10-30 14:16] LABS: URINE BLOOD 1+ (NEGATIVE); URINE NITRATE Negative (NEGATIVE)
[2021-10-30 14:58] LABS: POTASSIUM 4.1 mmol/L (3.5-4.5); TOTAL PROTEIN 7.6 gm/dL (6.2-8.1); TROPONIN-I 0.011 ng/mL (0.00-0.033)
[2021-10-30 14:59] LABS: CREATININE, serum 1.2 mg/dL (0.72-1.25)
[2021-10-30 15:00] LABS: CALCIUM 9.4 mg/dL (8.4-10.2)
[2021-10-30 15:01] LABS: ALBUMIN 3.2 gm/dL (3.5-5.0)
--- NOTE | 2021-10-30 15:38 | NUR ---
Dae Retrofit Installer informs of patient consultation for [facility]; Intensive Care Anaesthetist reviewed patient chart noting patient is 56 year old male, with a recent hospital admission and discharged to home on 10/21/2021. During that visit, there was family concern about patient's ability to remain safely at home despite PT/OT recommendations and medical discharge to home. An APS report #[id number] was completed that date. Per nursing this visit, patient presents by EMS after having become continent of urine and bowel and unable to navigate through his home to the bathroom due to "slippery wooden floors." Nursing informs patient clothing upon ER arrival was saturated in urine and bowel. Patient inquired "When do I need to go upstairs to my new bed." Patient reportedly refuses to stand up, stating "Not today" and "I can't walk anywhere." He requested a cathetar. Patient also reportedly has had an ER visit to [facility] as his daughter who works there took him there after his hospital discharge here to home, within the past week. Intensive Care Anaesthetist met with patient; patient presents alert and oriented and irritable mood. He states there is nothing going on at home that this Intensive Care Anaesthetist can assist with, but when reflecting his report of inability to ambulate to the bathroom due to slippery floors, he states he has been wearing grippy socks which work better than barefeet to help him find his ability to balance and stand. He also reflects there's a discussion about getting carpet runners in the home. He states he sleeps on the couch, always has, but believes he may best benefit from moving into the bedroom across the rodriguez from the bathroom, and they will need to get a bed in there for him. He lives currently with two daughters Vida and Carmen. He states they get "snippy" with him verbally but he adamantly denies any neglect/abuse. "They're doing a wonderful job. I'm well taken care of." Patient becomes increasingly agitated at this point, but is able to be redirected with feelings reflection and validation. He admits that he is struggling with chronic medical health conditions, when all his life he has been "a fixer." He acknowledges that he may now have medical issues that cannot be "fixed." He calms significatnly when "vulnerability" is reflected. 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 He wishes he had never retired, noting he is likely not taking care of himself due to grief/loss of both his legacy employment and also his spouse. He is somewhat interested in seeking mental healthcare, and he acknowledges his need to follow up with his outpatient primary care appointment scheduled 11/02/2021 at 13:00 at [facility]. He states no concerns with finances. He is struggling to communicate his needs with his daughters when he has never before had needs or required to be reliant on anyone. He is interested in re-establishing a life that he wants to live, "fishing." He does not believe this Intensive Care Anaesthetist can assist him at this time, and he is taken for a CT scan and labs are drawn. Stoney LO, [facility], Dr. Crawley are updated. Stoney LO informs Malu has called, requesting call back; Intensive Care Anaesthetist receives patient consent to speak to his daughter Malu, noting she is not identified as his DPOA-HC and he did not identify her in discussion. Intensive Care Anaesthetist contacted Malu, who lives in [place]. Malu is inquiring about patient medical status, and she states patient currently is making "excuses" to remain incontinent and living on their leather couch and hard wood floors where they can easily clean and sanitize as opposed to damaging their other furniture and funishings. "He is putting this on us!" Intensive Care Anaesthetist encouraged Malu and her sisters to determine their boundaries with their father. She verbalizes understanding and has no other questions at this time. She is updated on patient's desire to have a bed placed in the room across from the bathroom at home as he believes this will help him to remain continent. Stoney LO informs patient is angry that he is being discharged to home, stating he cannot take care of himself there. Stoney to contact Malu to notify and request transportation is coordinated. Stoney LO calls back to inform daughters state they followed up on patient Medicaid application and are wanting him placed. Intensive Care Anaesthetist explains the limitations of coordinating LTC placement this date, and will include in additional APS reporting with recommendation that daughters identify facilities of choice, and together with patient, work with the agency for an LTC admission. Patient is not meeting criteria at this time for a Shelter Rehabilitation stay or a hospitalization. APS report to be completed this date due to concern for patient self-care failure/neglect to self and needed resources for his daughters, including possible [facility] LTC placement.
[2021-10-30] MEDS ORDERED: BACTRIM DS 8001 TAB PO ×3 (15:51→16:27)
--- NOTE | 2021-10-30 17:46 | NUR ---
APS/[facility] report #[id number] completed this date.
[2021-10-30 17:47] VITALS: BP 100/66; PULSE 66
== END 2021-10-30 17:49 | disposition home or self-care (01) ==
LOC: COL.ER 13:09
PROVIDERS: Emergency Medicine
DX: N28.9 Disorder of kidney and ureter, unspecified (principal); D72.829 Elevated white blood cell count, unspecified; E66.9 Obesity, unspecified; Z68.38 Body mass index [BMI] 38.0-38.9, adult

== ENCOUNTER 2021-12-09 17:44 | Emergency (ER) | payer OTHER ==
[~2021-12-09] VITALS: Ht 172.7 cm; Wt 179.9 kg
[~2021-12-09 17:44] MED LIST changes: +BACTRIM DS 8001 TAB PO
[2021-12-09 17:57] VITALS: TEMP 98
[2021-12-09 18:15] LABS: COLLECTION METHOD CLEAN CATCH
[2021-12-09 18:18] LABS: URINE APPEARANCE Clear (CLEAR/HAZY); URINE COLOR Yellow (YELLOW)
[2021-12-09 18:19] LABS: URINE BLOOD Negative (NEGATIVE); URINE GLUCOSE Negative (NEGATIVE); URINE KETONE Negative (NEGATIVE); URINE NITRATE Negative (NEGATIVE); URINE PROTEIN(semi-quant) Negative (NEGATIVE)
[2021-12-09 18:29] LABS: MUCOUS Present (NOT PRESENT); SQUAMOUS EPITHELIAL 0-2 /hpf (0-10); URINE BACTERIA None Seen /hpf (NONE SEEN); URINE RBC 0-2 /hpf (0-2)
[2021-12-09 18:30] LABS: BASO # 0.1 K/mm3 (0.0-0.2); BASO % 0.3 % (0.0-2.0); EOS # 0.1 K/mm3 (0.0-0.7); EOS % 0.7 % (0.0-4.0); GRAN # 14.8 K/mm3 (1.4-6.5); GRAN % 81.9 % (42.2-75.2); HEMATOCRIT 41.5 % (42.0-52.0); HEMOGLOBIN 13.9 g/dl (13.5-18.0); LYMPH # 1.8 K/mm3 (1.2-3.4); MEAN CELL VOLUME 81 fl (80.0-100.0); MEAN CORPUSCULAR HEMOGLOBIN 27 pg (27-31); MEAN CORPUSCULAR HGB CONC 34 g/dl (33.0-37.0); MEAN PLATELET VOLUME 8.9 fl (7.4-10.4); MONO # 1.2 K/mm3 (0.1-0.6); MONO % 6.4 % (1.7-9.3); PLATELET COUNT 301 K/mm3 (130-400); REDCELL DISTRIBUTION WIDTH-CV 14.2 % (11.5-14.5)
[2021-12-09 18:47] LABS: BILIRUBIN,TOTAL 0.6 mg/dL (0.2-1.2); C-REACTIVE PROTEIN 2.68 mg/dL (0.00-0.50); CALCIUM 8.7 mg/dL (8.4-10.2); CREATININE, serum 1.12 mg/dL (0.72-1.25); POTASSIUM 3.9 mmol/L (3.5-4.5); TOTAL PROTEIN 7.2 gm/dL (6.2-8.1)
[2021-12-09 21:51] VITALS: BP 126/79; PULSE 107
== END 2021-12-09 21:51 | disposition home or self-care (01) ==
LOC: COL.ER 17:44
PROVIDERS: Nurse Practitioner
DX: R10.9 Unspecified abdominal pain (principal); E66.01 Morbid (severe) obesity due to excess calories; Z68.44 Body mass index [BMI] 60.0-69.9, adult
CPT/HCPCS: J2270; J2405; Q9967

== ENCOUNTER 2022-02-13 20:15 | Inpatient (IN) | payer MEDICAID ==
[~2022-02-13] VITALS: Ht 172.7 cm; Wt 178.8 kg
[2022-02-13 21:06] LABS: COLLECTION METHOD IN
[2022-02-13 21:10] LABS: URINE APPEARANCE Clear (CLEAR/HAZY); URINE BLOOD Negative (NEGATIVE); URINE COLOR Yellow (YELLOW); URINE GLUCOSE Negative (NEGATIVE); URINE KETONE TRACE (NEGATIVE); URINE NITRATE Negative (NEGATIVE); URINE PROTEIN(semi-quant) TRACE (NEGATIVE)
[2022-02-13 21:18] LABS: MUCOUS Present (NOT PRESENT); SQUAMOUS EPITHELIAL 0-2 /hpf (0-10); URINE BACTERIA Rare /hpf (NONE SEEN); URINE RBC 0-2 /hpf (0-2)
[2022-02-13 21:38] LABS: BASO % 0.2 % (0.0-2.0); EOS # 0.2 K/mm3 (0.0-0.7); EOS % 1.1 % (0.0-4.0); GRAN # 9.9 K/mm3 (1.4-6.5); GRAN % 74.9 % (42.2-75.2); HEMATOCRIT 40.5 % (42.0-52.0); LYMPH # 1.9 K/mm3 (1.2-3.4); LYMPH % 14.2 % (20.0-51.0); MEAN CELL VOLUME 78 fl (80.0-100.0); MEAN CORPUSCULAR HEMOGLOBIN 23 pg (27-31); MEAN CORPUSCULAR HGB CONC 30 g/dl (33.0-37.0); MEAN PLATELET VOLUME 9.1 fl (7.4-10.4); MONO # 1.2 K/mm3 (0.1-0.6); MONO % 9.1 % (1.7-9.3); PLATELET COUNT 417 K/mm3 (130-400); RED BLOOD COUNT 5.17 M/mm3 (4.20-5.60); REDCELL DISTRIBUTION WIDTH-CV 14.2 % (11.5-14.5)
[2022-02-13 22:00] LABS: ALANINE AMINOTRANSFERASE 19 U/L (0-55); ALBUMIN 3.1 gm/dL (3.5-5.0); ALKALINE PHOSPHATASE 133 U/L (40-150); ANION GAP 10 mmol/L (7-16); AST,SGOT 19 U/L (5-34); BILIRUBIN,TOTAL 0.5 mg/dL (0.2-1.2); BLOOD UREA NITROGEN 15 mg/dL (8-26); C-REACTIVE PROTEIN 3.08 mg/dL (0.00-0.50); CALCIUM 8.8 mg/dL (8.4-10.2); CARBON DIOXIDE 23 mmol/L (22-29); CHLORIDE 103 mmol/L (98-107); CREATINE KINASE 43 U/L (30-200); CREATININE, serum 1.04 mg/dL (0.72-1.25); GLUCOSE 211 mg/dL (70-99); POTASSIUM 3.6 mmol/L (3.5-4.5); SODIUM 136 mmol/L (136-145); TOTAL PROTEIN 7.7 gm/dL (6.2-8.1)
[2022-02-13 22:28] LABS: TROPONIN-I < 0.010 ng/mL (0.00-0.033)
[2022-02-13 23:50] VITALS: BP 107/54; PULSE 107; TEMP 98
[2022-02-14 00:01] LABS: PARTIAL THROMBOPLASTIN TIME 29.2 SECONDS (26.0-37.0)
[2022-02-14 04:00] VITALS: BP 105/58; PULSE 107; TEMP 97.6
[2022-02-14 07:31] LABS: BASO % 0.3 % (0.0-2.0); EOS # 0.1 K/mm3 (0.0-0.7); EOS % 1.2 % (0.0-4.0); GRAN # 7.2 K/mm3 (1.4-6.5); GRAN % 67.4 % (42.2-75.2); LYMPH # 2.2 K/mm3 (1.2-3.4); LYMPH % 20.5 % (20.0-51.0); MEAN CELL VOLUME 77 fl (80.0-100.0); MEAN CORPUSCULAR HGB CONC 30 g/dl (33.0-37.0); MEAN PLATELET VOLUME 9.1 fl (7.4-10.4); MONO # 1.1 K/mm3 (0.1-0.6); MONO % 9.9 % (1.7-9.3); PLATELET COUNT 319 K/mm3 (130-400); RED BLOOD COUNT 4.26 M/mm3 (4.20-5.60); REDCELL DISTRIBUTION WIDTH-CV 14.3 % (11.5-14.5)
[2022-02-14 07:36] LABS: HEMATOCRIT 32.7 % (42.0-52.0); HEMOGLOBIN 9.9 g/dl (13.5-18.0); MEAN CORPUSCULAR HEMOGLOBIN 23 pg (27-31)
[2022-02-14 07:44] LABS: CREATININE, serum 0.91 mg/dL (0.72-1.25); POTASSIUM 3.6 mmol/L (3.5-4.5)
[2022-02-14 07:54] VITALS: BP 100/48; PULSE 105; TEMP 97.7
[2022-02-14 15:14] VITALS: BP 128/67; PULSE 108; TEMP 98.1
[2022-02-14 20:15] VITALS: BP 110/72; PULSE 110; TEMP 97.6
[2022-02-14 23:55] VITALS: BP 130/75; PULSE 101; TEMP 98.4
[2022-02-15 04:42] VITALS: BP 111/54; PULSE 54; TEMP 97.5
[2022-02-15 06:46] LABS: BASO % 0.2 % (0.0-2.0); EOS # 0.1 K/mm3 (0.0-0.7); EOS % 1.4 % (0.0-4.0); GRAN # 6.7 K/mm3 (1.4-6.5); GRAN % 64.8 % (42.2-75.2); LYMPH # 2.1 K/mm3 (1.2-3.4); LYMPH % 20.4 % (20.0-51.0); MEAN CELL VOLUME 79 fl (80.0-100.0); MEAN CORPUSCULAR HGB CONC 30 g/dl (33.0-37.0); MEAN PLATELET VOLUME 9.2 fl (7.4-10.4); MONO # 1.3 K/mm3 (0.1-0.6); MONO % 12.6 % (1.7-9.3); PLATELET COUNT 326 K/mm3 (130-400); RED BLOOD COUNT 4.04 M/mm3 (4.20-5.60); REDCELL DISTRIBUTION WIDTH-CV 14.3 % (11.5-14.5)
[2022-02-15 06:47] LABS: HEMOGLOBIN 9.5 g/dl (13.5-18.0); MEAN CORPUSCULAR HEMOGLOBIN 24 pg (27-31)
[2022-02-15 07:18] LABS: CALCIUM 7.8 mg/dL (8.4-10.2); CREATININE, serum 0.97 mg/dL (0.72-1.25); MAGNESIUM 1.7 mg/dL (1.6-2.6); POTASSIUM 3.9 mmol/L (3.5-4.5)
[2022-02-15 08:17] VITALS: BP 124/67; PULSE 103; TEMP 98.3
[2022-02-15 11:54] VITALS: BP 112/60; PULSE 95; TEMP 97.9
[2022-02-15 15:23] VITALS: BP 102/59; PULSE 98; TEMP 97.4
[2022-02-15 20:00] VITALS: BP 107/50; PULSE 99; TEMP 98
[2022-02-16 00:29] VITALS: BP 116/60; PULSE 91; TEMP 98.6
[2022-02-16 04:27] VITALS: BP 117/51; PULSE 98; TEMP 97.3
[2022-02-16 06:23] LABS: BASO % 0.2 % (0.0-2.0); EOS # 0.2 K/mm3 (0.0-0.7); EOS % 1.4 % (0.0-4.0); GRAN # 7.9 K/mm3 (1.4-6.5); GRAN % 68.5 % (42.2-75.2); LYMPH # 2.3 K/mm3 (1.2-3.4); LYMPH % 19.6 % (20.0-51.0); MEAN CELL VOLUME 76 fl (80.0-100.0); MEAN CORPUSCULAR HGB CONC 31 g/dl (33.0-37.0); MEAN PLATELET VOLUME 9.3 fl (7.4-10.4); MONO # 1.1 K/mm3 (0.1-0.6); MONO % 9.7 % (1.7-9.3); PLATELET COUNT 292 K/mm3 (130-400); RED BLOOD COUNT 4.07 M/mm3 (4.20-5.60); REDCELL DISTRIBUTION WIDTH-CV 14.4 % (11.5-14.5)
[2022-02-16 06:24] LABS: HEMATOCRIT 31.1 % (42.0-52.0); HEMOGLOBIN 9.5 g/dl (13.5-18.0); MEAN CORPUSCULAR HEMOGLOBIN 23 pg (27-31)
[2022-02-16 06:34] LABS: CALCIUM 8.1 mg/dL (8.4-10.2); CREATININE, serum 0.85 mg/dL (0.72-1.25); POTASSIUM 4.2 mmol/L (3.5-4.5)
[2022-02-16 08:00] VITALS: BP 111/59; PULSE 92; TEMP 97.9
[2022-02-16 12:00] VITALS: BP 108/65; PULSE 87; TEMP 98.8
[2022-02-16 15:12] VITALS: BP 105/60; PULSE 67; TEMP 98.3
[2022-02-16 20:45] VITALS: BP 110/51; PULSE 95; TEMP 98.2
[2022-02-17] VITALS (7 sets, daily range): BP systolic 97–139; BP diastolic 52–76; PULSE 82–110; TEMP 97.6–98.4
[2022-02-17 06:43] LABS: BASO % 0.2 % (0.0-2.0); EOS # 0.2 K/mm3 (0.0-0.7); EOS % 1.8 % (0.0-4.0); GRAN # 8.1 K/mm3 (1.4-6.5); HEMATOCRIT 31.5 % (42.0-52.0); HEMOGLOBIN 9.6 g/dl (13.5-18.0); LYMPH # 2.3 K/mm3 (1.2-3.4); LYMPH % 19.4 % (20.0-51.0); MEAN CELL VOLUME 77 fl (80.0-100.0); MEAN CORPUSCULAR HEMOGLOBIN 23 pg (27-31); MEAN CORPUSCULAR HGB CONC 31 g/dl (33.0-37.0); MEAN PLATELET VOLUME 9.1 fl (7.4-10.4); MONO # 1.2 K/mm3 (0.1-0.6); PLATELET COUNT 311 K/mm3 (130-400); RED BLOOD COUNT 4.11 M/mm3 (4.20-5.60); REDCELL DISTRIBUTION WIDTH-CV 14.6 % (11.5-14.5)
[2022-02-17 07:07] LABS: CALCIUM 8.5 mg/dL (8.4-10.2); CREATININE, serum 0.84 mg/dL (0.72-1.25); MAGNESIUM 1.7 mg/dL (1.6-2.6); POTASSIUM 4.2 mmol/L (3.5-4.5)
[2022-02-18 03:03] VITALS: BP 104/53; PULSE 94; TEMP 97.9
[2022-02-18 08:00] VITALS: BP 114/63; PULSE 87; TEMP 98
[2022-02-18 11:50] VITALS: BP 118/59; PULSE 85; TEMP 97.9
[2022-02-18 16:00] VITALS: BP 104/64; PULSE 86; TEMP 98
[2022-02-18 20:05] VITALS: BP 117/59; PULSE 103; TEMP 97.9
[2022-02-18 23:03] VITALS: BP 148/68; PULSE 104; TEMP 99.9
[2022-02-19 04:56] VITALS: BP 121/74; PULSE 113; TEMP 98.7
[2022-02-19 07:25] VITALS: BP 106/63; PULSE 107; TEMP 99.4
[2022-02-19 11:20] VITALS: BP 109/54; PULSE 93; TEMP 97.7
[2022-02-19 15:18] VITALS: BP 104/62; PULSE 103; TEMP 99.1
[2022-02-19 22:58] VITALS: BP 131/68; PULSE 82; TEMP 99.3
[2022-02-20 08:12] VITALS: BP 107/52; PULSE 88; TEMP 98.3
[2022-02-20 15:56] VITALS: BP 126/64; PULSE 85; TEMP 98.1
[2022-02-20 20:54] VITALS: BP 118/57; PULSE 107; TEMP 98.2
[2022-02-21 00:17] VITALS: BP 128/58; PULSE 98; TEMP 98
[2022-02-21 06:40] LABS: BASO % 0.2 % (0.0-2.0); EOS # 0.2 K/mm3 (0.0-0.7); EOS % 2.5 % (0.0-4.0); GRAN # 5.4 K/mm3 (1.4-6.5); GRAN % 63.5 % (42.2-75.2); LYMPH # 1.8 K/mm3 (1.2-3.4); LYMPH % 20.9 % (20.0-51.0); MEAN CELL VOLUME 78 fl (80.0-100.0); MEAN CORPUSCULAR HGB CONC 30 g/dl (33.0-37.0); MEAN PLATELET VOLUME 9.6 fl (7.4-10.4); PLATELET COUNT 257 K/mm3 (130-400); RED BLOOD COUNT 4.26 M/mm3 (4.20-5.60); REDCELL DISTRIBUTION WIDTH-CV 14.8 % (11.5-14.5)
[2022-02-21 06:47] LABS: CREATININE, serum 0.91 mg/dL (0.72-1.25)
[2022-02-21 06:48] LABS: HEMATOCRIT 33.1 % (42.0-52.0); HEMOGLOBIN 9.9 g/dl (13.5-18.0); MEAN CORPUSCULAR HEMOGLOBIN 23 pg (27-31)
[2022-02-21 08:07] VITALS: BP 121/60; PULSE 85; TEMP 98
[2022-02-21 15:12] VITALS: BP 110/59; PULSE 91; TEMP 98.1
[2022-02-21 20:25] VITALS: BP 143/73; PULSE 67; TEMP 98.3
[2022-02-22] VITALS (8 sets, daily range): BP systolic 91–133; BP diastolic 52–66; PULSE 84–99; TEMP 97.8–98.5
[2022-02-23 07:59] VITALS: BP 114/46; PULSE 81; TEMP 98
[2022-02-23 09:00] VITALS: PULSE 81; TEMP 98
[2022-02-23 13:00] VITALS: PULSE 81; TEMP 98
[2022-02-23 16:00] VITALS: BP 113/57; PULSE 98; TEMP 98.1
[2022-02-23 17:12] VITALS: PULSE 98; TEMP 98.1
[2022-02-23 21:12] VITALS: BP 144/70
[2022-02-24] VITALS (8 sets, daily range): BP systolic 111–134; BP diastolic 58–68; PULSE 78–96; TEMP 97.5–98.2
[2022-02-25] VITALS (8 sets, daily range): BP systolic 102–129; BP diastolic 44–67; PULSE 68–96; TEMP 97.6–98.3
[2022-02-26] VITALS (10 sets, daily range): BP systolic 116–139; BP diastolic 54–69; PULSE 84–96; TEMP 97.6–98.9
[2022-02-27] VITALS (9 sets, daily range): BP systolic 114–127; BP diastolic 49–77; PULSE 87–97; TEMP 97.5–98.6
[2022-02-27 06:36] LABS: BASO % 0.2 % (0.0-2.0); EOS # 0.2 K/mm3 (0.0-0.7); EOS % 1.7 % (0.0-4.0); GRAN # 7.3 K/mm3 (1.4-6.5); HEMOGLOBIN 10.2 g/dl (13.5-18.0); LYMPH # 2.5 K/mm3 (1.2-3.4); LYMPH % 22.5 % (20.0-51.0); MEAN CELL VOLUME 76 fl (80.0-100.0); MEAN CORPUSCULAR HEMOGLOBIN 23 pg (27-31); MEAN CORPUSCULAR HGB CONC 30 g/dl (33.0-37.0); MEAN PLATELET VOLUME 9.3 fl (7.4-10.4); MONO # 0.8 K/mm3 (0.1-0.6); MONO % 7.5 % (1.7-9.3); PLATELET COUNT 284 K/mm3 (130-400); RED BLOOD COUNT 4.47 M/mm3 (4.20-5.60); REDCELL DISTRIBUTION WIDTH-CV 14.7 % (11.5-14.5)
[2022-02-27 06:37] LABS: HEMATOCRIT 33.8 % (42.0-52.0)
[2022-02-27 06:57] LABS: CREATININE, serum 0.92 mg/dL (0.72-1.25); MAGNESIUM 1.8 mg/dL (1.6-2.6); POTASSIUM 4.2 mmol/L (3.5-4.5)
[2022-02-27] MEDS ORDERED: ELIQUIS 5MG PO (12:03)
[2022-02-27] MEDS ORDERED: TOPROL XL 25MG25 MG PO (12:08)
[2022-02-27] MEDS ORDERED: CARDIZEM CD 12120 MG PO (12:09)
[2022-02-28] VITALS (7 sets, daily range): BP systolic 106–1066; BP diastolic 41–58; PULSE 81–98; TEMP 97.7–98.8
[2022-03-01] VITALS (7 sets, daily range): BP systolic 104–120; BP diastolic 57–70; PULSE 71–98; TEMP 97.7–99.1
[2022-03-02] VITALS (7 sets, daily range): BP systolic 130–134; BP diastolic 62–84; PULSE 71–88; TEMP 98.2–99.1
[2022-03-03 01:28] VITALS: PULSE 75; TEMP 98.2
[2022-03-03 05:17] VITALS: PULSE 75; TEMP 98.2
[2022-03-03 06:34] LABS: BASO % 0.2 % (0.0-2.0); EOS # 0.2 K/mm3 (0.0-0.7); EOS % 1.6 % (0.0-4.0); GRAN # 10.1 K/mm3 (1.4-6.5); GRAN % 71.5 % (42.2-75.2); HEMATOCRIT 34.1 % (42.0-52.0); LYMPH # 2.5 K/mm3 (1.2-3.4); LYMPH % 17.6 % (20.0-51.0); MEAN CELL VOLUME 77 fl (80.0-100.0); MEAN CORPUSCULAR HEMOGLOBIN 22 pg (27-31); MEAN CORPUSCULAR HGB CONC 29 g/dl (33.0-37.0); MEAN PLATELET VOLUME 8.9 fl (7.4-10.4); MONO # 1.2 K/mm3 (0.1-0.6); MONO % 8.5 % (1.7-9.3); PLATELET COUNT 326 K/mm3 (130-400); RED BLOOD COUNT 4.46 M/mm3 (4.20-5.60); REDCELL DISTRIBUTION WIDTH-CV 15.1 % (11.5-14.5)
[2022-03-03 06:50] LABS: CALCIUM 8.2 mg/dL (8.4-10.2); CREATININE, serum 0.9 mg/dL (0.72-1.25); POTASSIUM 4.1 mmol/L (3.5-4.5)
[2022-03-03 07:19] VITALS: BP 116/51; PULSE 88; TEMP 97.7
[2022-03-03 14:40] LABS: COLLECTION METHOD IN
[2022-03-03 14:47] LABS: PH 6.5 (5-8); SQUAMOUS EPITHELIAL 0-2 /hpf (0-10); URINE APPEARANCE Hazy (CLEAR/HAZY); URINE BACTERIA None Seen /hpf (NONE SEEN); URINE BLOOD Negative (NEGATIVE); URINE COLOR Yellow (YELLOW); URINE GLUCOSE Negative (NEGATIVE); URINE KETONE Negative (NEGATIVE); URINE NITRATE Negative (NEGATIVE); URINE PROTEIN(semi-quant) Negative (NEGATIVE); URINE RBC 0-2 /hpf (0-2); URINE UROBILINOGEN 0.2 (NEGATIVE)
[2022-03-03 15:30] VITALS: BP 113/57; PULSE 89; TEMP 98.1
[2022-03-03 17:00] VITALS: PULSE 89; TEMP 98.1
[2022-03-03 23:12] VITALS: BP 117/53; PULSE 82; TEMP 97.4
[2022-03-04] VITALS (7 sets, daily range): BP systolic 108–125; BP diastolic 46–66; PULSE 82–100; TEMP 97.4–98.9
[2022-03-05 00:15] VITALS: PULSE 86; TEMP 97.8
[2022-03-05 07:54] VITALS: BP 109/64; PULSE 99; TEMP 98.2
[2022-03-05 16:00] VITALS: BP 108/56; PULSE 86; TEMP 98.6
[2022-03-05 20:38] VITALS: BP 136/69
[2022-03-05 23:02] VITALS: BP 141/92; PULSE 84; TEMP 98.3
[2022-03-06] VITALS (7 sets, daily range): BP systolic 128–138; BP diastolic 50–80; PULSE 79–96; TEMP 97.6–98.4
[2022-03-06 06:25] LABS: BASO % 0.2 % (0.0-2.0); EOS # 0.2 K/mm3 (0.0-0.7); EOS % 1.3 % (0.0-4.0); GRAN # 10.1 K/mm3 (1.4-6.5); GRAN % 72.7 % (42.2-75.2); LYMPH # 2.2 K/mm3 (1.2-3.4); LYMPH % 15.9 % (20.0-51.0); MEAN CELL VOLUME 75 fl (80.0-100.0); MEAN CORPUSCULAR HGB CONC 30 g/dl (33.0-37.0); MEAN PLATELET VOLUME 9.3 fl (7.4-10.4); MONO # 1.3 K/mm3 (0.1-0.6); MONO % 9.3 % (1.7-9.3); PLATELET COUNT 304 K/mm3 (130-400); RED BLOOD COUNT 4.35 M/mm3 (4.20-5.60); REDCELL DISTRIBUTION WIDTH-CV 15.3 % (11.5-14.5)
[2022-03-06 06:32] LABS: HEMATOCRIT 32.4 % (42.0-52.0); HEMOGLOBIN 9.7 g/dl (13.5-18.0); MEAN CORPUSCULAR HEMOGLOBIN 22 pg (27-31)
[2022-03-06 06:44] LABS: CALCIUM 8.2 mg/dL (8.4-10.2); CREATININE, serum 0.84 mg/dL (0.72-1.25); MAGNESIUM 1.6 mg/dL (1.6-2.6)
[2022-03-07 08:00] VITALS: BP 132/59; PULSE 89; TEMP 98.2
[2022-03-07 16:00] VITALS: BP 116/61; PULSE 87; TEMP 98
[2022-03-07 23:10] VITALS: BP 109/50; PULSE 76; TEMP 98.2
[2022-03-08 01:34] VITALS: PULSE 76; TEMP 98.2
[2022-03-08 07:19] VITALS: BP 133/69; PULSE 96; TEMP 97.8
[2022-03-08 09:00] VITALS: PULSE 96; TEMP 97.8
[2022-03-08 15:44] VITALS: BP 130/76; PULSE 68; TEMP 98.1
[2022-03-08 17:00] VITALS: PULSE 68; TEMP 98.1
[2022-03-08 23:46] VITALS: BP 110/63; PULSE 97; TEMP 98.3
[2022-03-09] VITALS (7 sets, daily range): BP systolic 104–125; BP diastolic 50–71; PULSE 72–98; TEMP 98–98.5
[2022-03-09 06:44] LABS: BASO % 0.1 % (0.0-2.0); EOS # 0.1 K/mm3 (0.0-0.7); EOS % 0.9 % (0.0-4.0); GRAN # 10.3 K/mm3 (1.4-6.5); GRAN % 74.2 % (42.2-75.2); LYMPH # 2.1 K/mm3 (1.2-3.4); LYMPH % 15.1 % (20.0-51.0); MEAN CELL VOLUME 74 fl (80.0-100.0); MEAN CORPUSCULAR HGB CONC 31 g/dl (33.0-37.0); MEAN PLATELET VOLUME 9.4 fl (7.4-10.4); MONO # 1.3 K/mm3 (0.1-0.6); MONO % 9.2 % (1.7-9.3); PLATELET COUNT 289 K/mm3 (130-400); RED BLOOD COUNT 4.42 M/mm3 (4.20-5.60); REDCELL DISTRIBUTION WIDTH-CV 15.6 % (11.5-14.5)
[2022-03-09 06:51] LABS: HEMATOCRIT 32.5 % (42.0-52.0); HEMOGLOBIN 9.9 g/dl (13.5-18.0); MEAN CORPUSCULAR HEMOGLOBIN 22 pg (27-31)
[2022-03-09 06:56] LABS: CREATININE, serum 0.83 mg/dL (0.72-1.25); POTASSIUM 3.5 mmol/L (3.5-4.5)
[2022-03-10 07:48] VITALS: BP 127/56; PULSE 91; TEMP 97.8
[2022-03-10 09:00] VITALS: PULSE 91; TEMP 97.8
[2022-03-10 14:15] LABS: COLLECTION METHOD CLEAN CATCH
[2022-03-10 14:40] LABS: MUCOUS Present (NOT PRESENT); SQUAMOUS EPITHELIAL 0-2 /hpf (0-10); URINE BACTERIA None Seen /hpf (NONE SEEN); URINE RBC 0-2 /hpf (0-2)
[2022-03-10 14:41] LABS: PH 6.5 (5.0-8.5); URINE APPEARANCE Clear (CLEAR/HAZY); URINE BLOOD Negative (NEGATIVE); URINE COLOR Yellow (YELLOW); URINE GLUCOSE Negative (NEGATIVE); URINE KETONE Negative (NEGATIVE); URINE NITRATE Negative (NEGATIVE); URINE PROTEIN(semi-quant) Negative (NEGATIVE)
[2022-03-10 16:50] VITALS: BP 125/58; PULSE 94; TEMP 97.8
[2022-03-10 17:00] VITALS: PULSE 94; TEMP 97.8
[2022-03-10 22:58] VITALS: BP 116/54; PULSE 86; TEMP 98.8
[2022-03-11 01:00] VITALS: PULSE 86; TEMP 98.8
[2022-03-11 07:46] VITALS: BP 131/59; PULSE 90; TEMP 98.6
[2022-03-11 07:55] VITALS: PULSE 90; TEMP 98.6
[2022-03-11 16:00] VITALS: BP 118/60; PULSE 85; TEMP 98.2
[2022-03-11 16:11] VITALS: PULSE 85; TEMP 98.2
[2022-03-11 23:25] VITALS: BP 117/54; PULSE 96; TEMP 98.5
[2022-03-12 01:00] VITALS: PULSE 96; TEMP 98.5
[2022-03-12 08:35] VITALS: BP 106/68; PULSE 79; TEMP 98.2
[2022-03-12 09:31] VITALS: PULSE 79; TEMP 98.2
[2022-03-12 15:19] VITALS: BP 115/62; PULSE 77; TEMP 98.1
[2022-03-12 16:22] VITALS: PULSE 77; TEMP 98.1
[2022-03-12 23:55] VITALS: BP 112/59; PULSE 69; TEMP 98.6
[2022-03-13 01:00] VITALS: PULSE 69; TEMP 98.6
[2022-03-13 06:30] LABS: BASO % 0.2 % (0.0-2.0); EOS # 0.2 K/mm3 (0.0-0.7); EOS % 1.5 % (0.0-4.0); GRAN # 9.2 K/mm3 (1.4-6.5); GRAN % 70.3 % (42.2-75.2); LYMPH # 2.4 K/mm3 (1.2-3.4); MEAN CELL VOLUME 75 fl (80.0-100.0); MEAN CORPUSCULAR HGB CONC 30 g/dl (33.0-37.0); MONO # 1.2 K/mm3 (0.1-0.6); MONO % 9.5 % (1.7-9.3); PLATELET COUNT 253 K/mm3 (130-400); RED BLOOD COUNT 4.41 M/mm3 (4.20-5.60); REDCELL DISTRIBUTION WIDTH-CV 15.7 % (11.5-14.5)
[2022-03-13 06:32] LABS: HEMATOCRIT 33.2 % (42.0-52.0); HEMOGLOBIN 9.9 g/dl (13.5-18.0); MEAN CORPUSCULAR HEMOGLOBIN 22 pg (27-31)
[2022-03-13 06:53] LABS: CREATININE, serum 0.84 mg/dL (0.72-1.25); POTASSIUM 3.8 mmol/L (3.5-4.5)
[2022-03-13 08:00] VITALS: BP 119/60; PULSE 65; TEMP 98.2
[2022-03-13 16:00] VITALS: BP 122/58; PULSE 70; TEMP 98.3
[2022-03-13 23:35] VITALS: BP 113/68; PULSE 86; TEMP 98
[2022-03-14 08:00] VITALS: BP 115/64; PULSE 82; TEMP 98.1
[2022-03-14 16:00] VITALS: BP 112/62; PULSE 85; TEMP 98
[2022-03-15 00:05] VITALS: BP 105/58; PULSE 79; TEMP 98
[2022-03-15 07:27] VITALS: BP 108/61; PULSE 74; TEMP 97.8
[2022-03-15 16:00] VITALS: BP 115/52; PULSE 95; TEMP 98
[2022-03-15 23:28] VITALS: BP 118/47; PULSE 55; TEMP 97.8
[2022-03-16 08:02] VITALS: BP 108/68; PULSE 85; TEMP 98.4
[2022-03-16 15:39] VITALS: BP 100/55; PULSE 82; TEMP 98.1
[2022-03-17 00:09] VITALS: BP 118/68; PULSE 70; TEMP 97.8
[2022-03-17 08:29] VITALS: BP 123/53; PULSE 94; TEMP 97.8
[2022-03-17 16:50] VITALS: BP 112/53; PULSE 87; TEMP 98.5
[2022-03-17 21:31] VITALS: BP 117/54; PULSE 60; TEMP 98.4
[2022-03-18 07:28] VITALS: BP 115/46; PULSE 107; TEMP 98
[2022-03-18 15:22] VITALS: BP 115/53; PULSE 63; TEMP 97.9
[2022-03-19 08:00] VITALS: BP 118/55; PULSE 65; TEMP 98.2
[2022-03-19 16:00] VITALS: BP 112/52; PULSE 67; TEMP 98
[2022-03-19 19:57] VITALS: BP 118/61; PULSE 79; TEMP 97.9
[2022-03-20 07:47] VITALS: BP 110/66; PULSE 82; TEMP 97.7
[2022-03-20 16:18] VITALS: BP 118/69; PULSE 68; TEMP 98.7
[2022-03-20 20:09] VITALS: BP 112/64; PULSE 69; TEMP 97.5
[2022-03-21 07:17] VITALS: BP 126/53; PULSE 74; TEMP 97.6
[2022-03-21 16:25] VITALS: BP 109/49; PULSE 66; TEMP 98.2
[2022-03-22 00:09] VITALS: BP 117/50; PULSE 82; TEMP 98
[2022-03-22 07:17] VITALS: BP 116/57; PULSE 73; TEMP 97.6
[2022-03-22 16:54] VITALS: BP 116/65; PULSE 77; TEMP 98.1
[2022-03-23 00:01] VITALS: BP 118/58; PULSE 76; TEMP 97.9
[2022-03-23 07:51] VITALS: BP 96/55; PULSE 80; TEMP 98.7
[2022-03-23 19:20] VITALS: BP 126/50; PULSE 71; TEMP 98.8
[2022-03-23 23:46] VITALS: BP 121/64; PULSE 88; TEMP 97.5
[2022-03-24 08:00] VITALS: BP 109/61; PULSE 73; TEMP 98
[2022-03-25 07:12] VITALS: BP 119/48; PULSE 85; TEMP 98
[2022-03-25 20:51] VITALS: BP 122/64; PULSE 83; TEMP 98.4
[2022-03-26 07:07] VITALS: BP 107/56; PULSE 77; TEMP 97.8
[2022-03-26 19:28] VITALS: BP 120/64; PULSE 82; TEMP 99
[2022-03-27 07:57] VITALS: BP 115/55; PULSE 82; TEMP 98.2
[2022-03-27 20:36] VITALS: BP 134/58; PULSE 90; TEMP 98.5
[2022-03-28 07:54] VITALS: BP 104/69; PULSE 84; TEMP 97.5
[2022-03-29 05:20] VITALS: BP 105/63; PULSE 115; TEMP 97.7
[2022-03-29 11:35] VITALS: BP 96/47; PULSE 76; TEMP 97.9
[2022-03-29 21:54] VITALS: BP 110/54; PULSE 61; TEMP 98
[2022-03-30 07:09] LABS: BASO % 0.1 % (0.0-2.0); EOS # 0.1 K/mm3 (0.0-0.7); EOS % 1.2 % (0.0-4.0); GRAN # 8.3 K/mm3 (1.4-6.5); GRAN % 71.1 % (42.2-75.2); LYMPH # 2.1 K/mm3 (1.2-3.4); LYMPH % 17.8 % (20.0-51.0); MEAN CELL VOLUME 72 fl (80.0-100.0); MEAN CORPUSCULAR HGB CONC 30 g/dl (33.0-37.0); MEAN PLATELET VOLUME 8.7 fl (7.4-10.4); MONO # 1.1 K/mm3 (0.1-0.6); MONO % 9.3 % (1.7-9.3); PLATELET COUNT 268 K/mm3 (130-400); RED BLOOD COUNT 4.58 M/mm3 (4.20-5.60); REDCELL DISTRIBUTION WIDTH-CV 16.7 % (11.5-14.5)
[2022-03-30 07:10] LABS: HEMATOCRIT 32.8 % (42.0-52.0); HEMOGLOBIN 9.8 g/dl (13.5-18.0); MEAN CORPUSCULAR HEMOGLOBIN 21 pg (27-31)
[2022-03-30 07:21] LABS: CALCIUM 8.1 mg/dL (8.4-10.2); CREATININE, serum 0.88 mg/dL (0.72-1.25); POTASSIUM 3.8 mmol/L (3.5-4.5)
[2022-03-30 12:03] VITALS: BP 108/56; PULSE 64; TEMP 98.1
[2022-03-30 23:28] VITALS: BP 104/43; PULSE 74; TEMP 98.1
[2022-03-31 06:01] VITALS: BP 119/59; PULSE 89; TEMP 98.3
[2022-03-31 08:15] VITALS: BP 116/50; PULSE 90; TEMP 98
[2022-03-31 17:27] VITALS: BP 147/75; PULSE 80; TEMP 98.6
[2022-03-31 19:36] VITALS: BP 135/56; PULSE 71; TEMP 98.4
[2022-04-01 11:53] VITALS: BP 119/56; PULSE 84; TEMP 98
[2022-04-01 19:52] VITALS: BP 113/58; PULSE 86; TEMP 98.6
[2022-04-02 07:47] VITALS: BP 109/58; PULSE 76; TEMP 97.9
[2022-04-02 20:34] VITALS: BP 130/68; PULSE 91; TEMP 98
[2022-04-03 05:31] VITALS: BP 115/67; PULSE 81; TEMP 97.8
[2022-04-04] VITALS: BP 109/57; PULSE 59; TEMP 97.9
[2022-04-04 12:00] VITALS: BP 115/69; PULSE 81; TEMP 97.9
[2022-04-04 23:32] VITALS: BP 100/52; PULSE 72; TEMP 98.5
[2022-04-05 11:43] VITALS: BP 116/67; PULSE 73; TEMP 98.4
[2022-04-05 23:49] VITALS: BP 120/49; PULSE 68; TEMP 97.4
[2022-04-06 11:30] VITALS: BP 124/57; PULSE 95; TEMP 98.4
[2022-04-06 23:45] VITALS: BP 125/70; PULSE 77; TEMP 98
[2022-04-07 12:04] VITALS: BP 116/65; PULSE 72; TEMP 97.9
[2022-04-07 20:02] VITALS: BP 134/68; PULSE 88; TEMP 98.4
[2022-04-08 12:02] VITALS: BP 122/64; PULSE 84; TEMP 98.2
[2022-04-08 19:25] VITALS: BP 115/42; PULSE 82; TEMP 98.3
[2022-04-09 07:30] VITALS: BP 137/72; PULSE 68; TEMP 98.3
[2022-04-09 19:51] VITALS: BP 114/62; PULSE 77; TEMP 98.3
[2022-04-10 06:28] LABS: BASO % 0.2 % (0.0-2.0); EOS # 0.2 K/mm3 (0.0-0.7); EOS % 1.2 % (0.0-4.0); GRAN # 10.2 K/mm3 (1.4-6.5); GRAN % 71.5 % (42.2-75.2); HEMOGLOBIN 10.1 g/dl (13.5-18.0); LYMPH # 2.6 K/mm3 (1.2-3.4); LYMPH % 17.9 % (20.0-51.0); MEAN CELL VOLUME 73 fl (80.0-100.0); MEAN CORPUSCULAR HEMOGLOBIN 21 pg (27-31); MEAN CORPUSCULAR HGB CONC 29 g/dl (33.0-37.0); MEAN PLATELET VOLUME 9.1 fl (7.4-10.4); MONO # 1.2 K/mm3 (0.1-0.6); MONO % 8.7 % (1.7-9.3); PLATELET COUNT 291 K/mm3 (130-400); RED BLOOD COUNT 4.73 M/mm3 (4.20-5.60); REDCELL DISTRIBUTION WIDTH-CV 17.2 % (11.5-14.5)
[2022-04-10 06:31] LABS: HEMATOCRIT 34.7 % (42.0-52.0)
[2022-04-10 06:53] LABS: CALCIUM 8.4 mg/dL (8.4-10.2); CREATININE, serum 0.91 mg/dL (0.72-1.25); MAGNESIUM 1.6 mg/dL (1.6-2.6); POTASSIUM 3.9 mmol/L (3.5-4.5)
[2022-04-10 08:06] VITALS: BP 135/68; PULSE 96; TEMP 97.9
[2022-04-10 20:03] VITALS: BP 118/60; PULSE 89; TEMP 98.3
[2022-04-11 07:14] VITALS: BP 126/70; PULSE 83; TEMP 97.7
[2022-04-11 19:13] VITALS: BP 112/56; PULSE 85; TEMP 98.4
[2022-04-12 09:23] VITALS: BP 139/55; PULSE 83; TEMP 98.4
[2022-04-12] MEDS ORDERED: PROBIOTIC ACID1 EAC3 PO (16:58)
[2022-04-12] MEDS ORDERED: DUO-KAPS1 CAP PO (16:58)
[2022-04-12] MEDS ORDERED: MELATONIN3 M1 PO (16:58)
[2022-04-12] MEDS ORDERED: CELEXA 20MG20 MG/TAB PO (16:58)
[2022-04-12] MEDS ORDERED: DESENEX TP (16:58)
[2022-04-12] MEDS ORDERED: INSULIN AS100 UNIT/2 SQ (17:00)
[2022-04-12 19:40] VITALS: BP 105/52; PULSE 90; TEMP 98.2
[2022-04-13 07:10] VITALS: BP 103/72; PULSE 65; TEMP 98
[2022-04-13 19:42] VITALS: BP 120/45; PULSE 101; TEMP 98.7
[2022-04-14 08:25] VITALS: BP 112/63; PULSE 83; TEMP 97.8
[2022-04-14] MEDS ORDERED: LASIX 20MG TABL20 MG PO (08:51)
== END 2022-04-14 13:40 | DRG 309 ==
LOC: COL.ER 20:15 → MEDICAL 22:07
PROVIDERS: Emergency Medicine; Hospitalist; Internal Medicine; Physician Assistant; Student in an Organized Health Care Education/Training Program; ADMIT Internal Medicine
DX: I48.20 Chronic atrial fibrillation, unspecified (principal); R65.10 Systemic inflammatory response syndrome (SIRS) of non-infectious origin without acute organ dysfunction; Z68.44 Body mass index [BMI] 60.0-69.9, adult; E66.01 Morbid (severe) obesity due to excess calories; N40.0 Benign prostatic hyperplasia without lower urinary tract symptoms; E78.5 Hyperlipidemia, unspecified; G47.33 Obstructive sleep apnea (adult) (pediatric); Z66 Do not resuscitate; E11.22 Type 2 diabetes mellitus with diabetic chronic kidney disease; N18.9 Chronic kidney disease, unspecified; F10.90 Alcohol use, unspecified, uncomplicated; D75.839 Thrombocytosis, unspecified; I12.9 Hypertensive chronic kidney disease with stage 1 through stage 4 chronic kidney disease, or unspecified chronic kidney disease; Z20.822 Contact with and (suspected) exposure to COVID-19; M54.50 Low back pain, unspecified; I08.1 Rheumatic disorders of both mitral and tricuspid valves; L89.329 Pressure ulcer of left buttock, unspecified stage; L89.319 Pressure ulcer of right buttock, unspecified stage; L89.159 Pressure ulcer of sacral region, unspecified stage; N28.89 Other specified disorders of kidney and ureter; N28.1 Cyst of kidney, acquired; Z91.199 Patient's noncompliance with other medical treatment and regimen due to unspecified reason; Z79.84 Long term (current) use of oral hypoglycemic drugs
CPT/HCPCS: A9284; J1644; J1815; J2543; J3475; J7030